=== PATIENT | male | born 2000 | race African-American/Black ===

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

== ENCOUNTER 2022-10-04 10:21 | Emergency (ER) | payer MEDICAID ==
[~2022-10-04] VITALS: Ht 172.7 cm; Wt 63.7 kg
[2022-10-04 10:29] VITALS: BP 117/73
--- NOTE | 2022-10-04 10:36 | NUR ---
PATIENT AMBULATED TO BED 8 WITHOUT ASSITANCE
--- NOTE | 2022-10-04 10:39 | NUR ---
PATIENT AMBULATED TO RESTROOM FOR UNRINE SAMPLE
--- NOTE | 2022-10-04 10:44 | NUR ---
MD CRUM AT BEDSIDE FOR EVALUATION
[2022-10-04 10:54] LABS: APPEARANCE,URINE CLEAR (CLEAR); BILIRUBIN,URINE NEGATIVE (NEGATIVE); BLOOD, URINE NEGATIVE (NEGATIVE); COLOR,URINE YELLOW (YELLOW); LEUKOCYTE ESTERASE ,URINE NEGATIVE (NEGATIVE); NITRITE, URINE NEGATIVE (NEGATIVE); PH,URINE 6.5 (5.0-9.0); UGLUCOSE NEGATIVE (NEGATIVE)
--- NOTE | 2022-10-04 11:11 | NUR ---
21 YO M PRESENTS W/PENILE PAIN, REDNESS, SMALL OPEN AREAS X 7 DAYS, WORSENING TODAY, NAUSEA X 3 DAYS, PT DENIES ANY URINARY SYMPTOMS/FREQUENCY, DENIES ABD PAIN, BACK PAIN. SAFETY MAINTAINED. HX:NONE NKA
[2022-10-04] MEDS ORDERED: cefTRIAXone 500 MG in LIDOCAINE MPF 1% 1 ML IM ONE (12:15)
[2022-10-04] MEDS ORDERED: LIDOCAINE MPF 1% 5 ML ONE (12:33)
[2022-10-04] MEDS ORDERED: cefTRIAXone 500 MG VIAL ONE (12:33)
[2022-10-04] MEDS ORDERED: DOXY-690 PO (12:36)
[2022-10-04] MEDS ORDERED: VALA1TAB40 PO (12:36)
[2022-10-04 13:03] VITALS: BP 116/69
--- NOTE | 2022-10-04 13:05 | NUR ---
Patient discharged with v/s stable. Written and verbal after care instructions given and explained. Patient alert, oriented and verbalized understanding of instructions. Ambulatory with steady gait. All questions addressed prior to discharge. ID band removed. Patient advised to follow up with PMD. Rx of VIBRAMYCIN, VALACYCLOVIR given. Opportunity to ask questions provided and answered.
--- NOTE | 2022-10-04 13:06 | NUR ---
The patient's care was reviewed and supervised by Leatha Martell, RN, RN.
== END 2022-10-04 13:01 | disposition home or self-care (01) ==
LOC: MED 10:21
DX: A64 Unspecified sexually transmitted disease (principal); N48.5 Ulcer of penis; A74.9 Chlamydial infection, unspecified; Z79.899 Other long term (current) drug therapy; Z79.2 Long term (current) use of antibiotics
CPT/HCPCS: 81003; 86592; 86703; 87491; 96372; 99283; J0696; J2001